=== PATIENT | female | born 1940 ===

== ENCOUNTER → 2016-10-17 | Outpatient (CLI) | payer MEDICARE, OTHER | LOC: RAD 18:31 | PROVIDERS: ATTEND Internal Medicine | DX: H49.02 Third [oculomotor] nerve palsy, left eye (principal); H57.04 Mydriasis | CPT/HCPCS: 70551; 82565 ==

== ENCOUNTER → 2020-08-09 | Outpatient (CLI) | payer MEDICARE, OTHER | LOC: OD 12:26 | PROVIDERS: ATTEND Internal Medicine Nephrology | DX: N18.4 Chronic kidney disease, stage 4 (severe) (principal); E87.5 Hyperkalemia | CPT/HCPCS: 36415; 84132 ==